=== PATIENT | female | born 1965 | race Caucasian/White ===

== ENCOUNTER 2019-04-29 07:18 | Day surgery (SDC) | payer MEDICAID, OTHER ==
[~2019-04-29] VITALS: Ht 165.1 cm; Wt 155.0 kg
[2019-04-29] VITALS (10 sets, daily range): BP systolic 112–143; BP diastolic 47–71; PULSE 68–88; RESP 12–26; Ht 165.1 cm; Wt 155.0 kg
[~2019-04-29 07:18] MED LIST: ACET-2047 GTB; ALBU2.5V3 NEB; BALS60OI TOP; BENADRYL IV*; CHLO473M4 MM; DEXT50DI2 INJ; HEPA1000 IJ; IPRATROPIUM BROMIDE NEB; LACT10SO5 G-TUBE; LANS30CA G-TUBE; LORA0.5T PO; LOSA25TA12 GTB; MELA5TAB21 GTB; METO-448 GTB; MUPI22OI2 TOP; NEPH GTB; NPH SQ; NYST1POW22 TOPICAL; PIPE2.254 IV; POLY17PO6 GTB; QUET25TA G-TUBE; SENN-120 PO; SS SC; [UNRECOGNIZED DRUG - CODE] IV
--- NOTE | 2019-04-29 08:34 | PREAC ---
Date/Time of Note Date/Time of Note DATE: 04/29/19 TIME: 08:30 Anesthesia Eval and Record Evaluation Time Pre-Procedure Interview DATE: 04/29/19 TIME: 08:30 Age 53 Sex female NPO: 8 hrs Preoperative diagnosis G J tube obstruction Planned procedure G J Tube Replacement Past Medical History Past Medical History: Includes Cardio: HTN, MT, CAD (S/P MT 02/2019, EF 65%) Endo: Diabetes (BG 168) Neuro: Other (s/p SAH) Renal: ESRD on dialysis (Last Dialysis Thursday, K 4.2) GI: Morbid obesity (BMI 56) Surgery & Anesthesia Issues No known issue Meds Anticoagulation: No Beta Ambika within 24 hr: Yes Reported Medications Sennosides* (Senna Lax*) 8.6 Mg Tablet, 2 TAB PO BID, TAB 04/29/19 Quetiapine Fumarate* (Seroquel*) 25 Mg Tablet, 25 MG G-TUBE QHS, #30 TAB 04/29/19 Polyethylene Glycol* (Miralax*) 17 Gm Powd.pack, 17 GM GTB DAILY, #30 PACKET 04/29/19 Thwhoiwazshr-Lytr-Wftuptoy,Iso (ZOSYN 2.25 GM GALAXY BAG) 2.25 Gm/50 Ml Froz.piggy, 2.25 GM IV BID 04/29/19 Nystatin (Nystatin Powder) 1 Each Powder.ea., 1 APPLIC TOPICAL BID, #1 BOTTLE 04/29/19 Insulin Human Nph (Novolin-N) 100 Units/Ml Susp, 8 SQ Q8 04/29/19 Mupirocin* (Bactroban*) 2% -22 Gram Oint...g., 1 APPLIC TOP BID, #1 TUB SITE OF APPLICATION: 04/29/19 Multivit/Ca Carb/B Cmplx/Fa* ([place]-Dedrick*) 1 Tab Tab, 1 TAB GTB DAILY, TAB 04/29/19 Metoprolol Tartrate* (Lopressor*) 25 Mg Tab, 25 MG GTB BID, #60 TAB 04/29/19 Melatonin (Melatonin) 5 Mg Tab.ir.er, 5 MG GTB QHS 04/29/19 Losartan Potassium* (Losartan Potassium*) 25 Mg Tablet, 25 MG GTB DAILY, TAB 04/29/19 Lorazepam* (Lorazepam*) 0.5 Mg Tablet, 0.5 MG PO Q6 PRN for ANXIETY, TAB 04/29/19 Lansoprazole* (Lansoprazole*) 30 Mg Capsule.dr, 30 MG G-TUBE DAILY, CAP 04/29/19 Lactulose* (Lactulose*) 10 Gm/15 Ml Solution, 10 GM G-TUBE DAILY, ML 04/29/19 [Ipratropium [place]] No Conflict Check, 0.5 MG NEB Q6 04/29/19 Insulin Human Regular (Novolin-R U-100) 100 Unit/Ml Soln, 0-6 SC SLIDING SCALE AC, EA 04/29/19 Heparin Sodium,Porcine/Pf (Heparin 2,000 Unit/2 ml Vial) 1,000 Unit/1 Ml Vial, 5000 UNIT IJ Q8 for 5000 UNIT/1ML, VIAL 04/29/19 [Benadryl] No Conflict Check, 25 MG IV* Q6 PRN for ITCHING 04/29/19 Dextrose* (D50W Syringe*) 50 Ml Soln, 50 ML INJ PRN for FOR BG<70, EA 04/29/19 Dextrose (D5w) 100 Ml Iv.soln., 1000 ML IV 60 ML/HR 04/29/19 Chlorhexidine Gluconate (Peridex) 473 Ml Mouthwash, 15 ML MM BID, BOTTLE 04/29/19 Balsam [place] Oil (Venelex Ointment) 60 Gm Oint..gm., 1 APPLIC TOP BID, #1 TUB 04/29/19 Albuterol Sulfate* (Albuterol Sulfate* Neb) 0.083%-3 Ml Neb, 2.5 MG NEB Q6 for WSOB, #30 VIAL 04/29/19 Acetaminophen* (Acetaminophen*) 650 Mg Tablet, 650 MG GTB Q4 PRN for PAIN AND OR ELEVATED TEMP, #30 TAB 04/29/19 Meds reviewed: Yes Allergies Coded Allergies: No Known Allergy (Unverified , 04/29/19) Allergies Reviewed: Yes Labs/Studies Labs Reviewed: Reviewed by anesthesiologist test: N/A Studies: ECG (SR, prolonged IL), CXR (Cardiomegaly) Pre-procedure Exam Last vitals Vital Signs Date Temp Pulse Resp B/P (MAP) Pulse Ox O2 O2 Flow FiO2 Time Delivery Rate 8/2/19 97.6 68 18 131/66 100 Trach 06:59 (87) Collar Airway: Adequate mouth opening Mallampati: Mallampati IV Teeth: Normal (intact) Lung: Normal (diminished) Heart: Normal ASA Physical Status ASA physical status: 4 Emergency: None Planned Anesthetic General/MAC: ETT (with trach, rahul number 6) Pre-operative Attestations Prior to commencing anesthesia and surgery, the patient was re-evaluated, there was verification of: *The patient's identity *The results of appropriate recent lab work and preoperative vital signs *The above evaluation not changing prior to induction *Anesthetic plan, risk benefits, alternative and complications discussed with patient/family; questions answered; patient/family understands, accepts and wishes to proceed. PIERCE SEQUEIRA CHAIN PULLER Apr 29, 2019 08:34
[2019-04-29] MEDS ORDERED: LIDOCAINE 2% (SDV) 5 ML INJ ONE (09:03)
[2019-04-29] MEDS ORDERED: PROPOFOL 20 ML ONE (09:03)
[2019-04-29] MEDS ORDERED: FENTAnyl 50 MCG/ML VIAL IV PRN ×2 (09:30)
[2019-04-29] MEDS ORDERED: LABETALOL HCL 20MG INJ IV PRN (09:30)
--- NOTE | 2019-04-29 09:32 | PAC ---
Date/Time of Note Date/Time of Note DATE: 04/29/19 TIME: 09:32 Post-Anesthesia Notes Post-Anesthesia Note Last documented vital signs 134/64, 975, 75, 19, 99.5 Vital Signs Date Temp Pulse Resp B/P (MAP) Pulse Ox O2 O2 Flow FiO2 Time Delivery Rate 04/29/19 97.6 68 18 131/66 100 Trach 06:59 (87) Collar Activity: WNL Respiratory function: WNL Cardiovascular function: WNL Mental status: Baseline Pain reasonably controlled: Yes Hydration appropriate: Yes Nausea/Vomiting absent: Yes PIERCE SEQUEIRA CRNA Apr 29, 2019 09:32
[2019-04-29] MEDS ORDERED: FENTAnyl 50 MCG/ML VIAL ONE (09:44)
== END 2019-04-29 10:30 ==
LOC: SDS 07:18
PROVIDERS: ATTEND Internal Medicine Gastroenterology
DX: R13.14 Dysphagia, pharyngoesophageal phase (principal); I12.0 Hypertensive chronic kidney disease with stage 5 chronic kidney disease or end stage renal disease; N18.6 End stage renal disease; Z99.2 Dependence on renal dialysis; E11.9 Type 2 diabetes mellitus without complications; I25.10 Atherosclerotic heart disease of native coronary artery without angina pectoris; I25.2 Old myocardial infarction; E66.01 Morbid (severe) obesity due to excess calories; Z68.43 Body mass index [BMI] 50.0-59.9, adult; Z79.4 Long term (current) use of insulin
CPT/HCPCS: 49446; J3010